=== PATIENT | male | born 1995 | race Caucasian/White ===

== ENCOUNTER 2021-01-17 12:12 | Emergency (ER) | payer BC ==
[~2021-01-17] VITALS: Ht 177.8 cm; Wt 136.1 kg
== END 2021-01-17 15:00 | disposition home or self-care (01) ==
LOC: ER1 12:12
DX: Z23 Encounter for immunization (principal); U07.1 COVID-19; Z79.1 Long term (current) use of non-steroidal anti-inflammatories (NSAID)
CPT/HCPCS: 99283; M0243

== ENCOUNTER → 2022-01-03 | Outpatient (CLI) | payer BC | LOC: KOH-I 13:18 | DX: R10.9 Unspecified abdominal pain (principal) | CPT/HCPCS: 74018 ==